=== PATIENT | female | born 1975 | race Caucasian/White ===

== ENCOUNTER → 2020-09-01 | Outpatient (CLI) | payer BC, OTHER | END | disposition home or self-care (01) | LOC: STAR 16:04 | PROVIDERS: ATTEND Anesthesiology | DX: Z20.828 Contact with and (suspected) exposure to other viral communicable diseases (principal) | CPT/HCPCS: 87635 ==

== ENCOUNTER 2020-09-05 08:00 | Outpatient (CLI) | payer BC, OTHER ==
[~2020-09-05] VITALS: Ht 162.6 cm; Wt 80.0 kg
[2020-09-05] MEDS ORDERED: ERGO500017 PO (13:07)
[2020-09-05] MEDS ORDERED: AMLO-150 PO (13:07)
[2020-09-05] MEDS ORDERED: BENA40TA3 PO (13:07)
[2020-09-05 13:41] LABS: BASOPHILS % (AUTO) 0 % (0-1); EOSINOPHILS % (AUTO) 1 % (1-7); LYMPHOCYTES % (AUTO) 30 % (22-44); MD NO; MEAN CORPUSCULAR HEMOGLOBIN 28.1 pg (27.0-34.8); MEAN CORPUSCULAR HGB CONC 33.4 g/dL (32.4-35.8); MEAN PLATELET VOLUME 9.2 fL (7.4-10.4); MONOCYTES % (AUTO) 7 % (2-9); NEUTROPHILS % (AUTO) 62 % (42-75); PLATELET COUNT 304 x10^3/uL (130-400); RED CELL DISTRIBUTION WIDTH 14.2 % (9.6-15.2)
[2020-09-05 13:54] LABS: ALBUMIN 4.6 g/dL (3.4-5.0); ANION GAP 6 mmol/L (5-15); CALCIUM 9.8 mg/dL (8.5-10.1); CHLORIDE 107 mmol/L (98-107)
[2020-09-05 14:00] LABS: ALANINE AMINOTRANSFERASE 59 U/L (12-78); ALKALINE PHOSPHATASE 67 U/L (45-117); BILIRUBIN,TOTAL 0.6 mg/dL (0.2-1.0); CREATININE 0.75 mg/dL (0.55-1.02); TOTAL PROTEIN 8.5 g/dL (6.4-8.2)
== END 2020-09-05 23:59 | disposition home or self-care (01) ==
LOC: STAR 08:00 → EDSTATUS 09-07 07:00
PROVIDERS: ATTEND Obstetrics & Gynecology
DX: Z01.818 Encounter for other preprocedural examination (principal); D25.9 Leiomyoma of uterus, unspecified; R10.2 Pelvic and perineal pain; N92.0 Excessive and frequent menstruation with regular cycle; R19.04 Left lower quadrant abdominal swelling, mass and lump
CPT/HCPCS: 36415; 80053; 84702; 85025